=== PATIENT | female | born 1995 | race Caucasian/White ===

== ENCOUNTER 2018-04-20 05:23 | Inpatient (IN) | payer MEDICAID ==
[2018-04-20] MEDS ORDERED: Sodium Chloride 0.9% 10 ML Syringe FLUSH PRN ×2 (05:36→09:27)
[2018-04-20] MEDS ORDERED: ceFAZolin 2 GM in Premix Bag 1 BAG IV ONE (05:36)
[2018-04-20] MEDS ORDERED: Sodium Chloride 0.9% 2.5 ML Syringe FLUSH PRN ×2 (05:36→09:27)
[2018-04-20] MEDS ORDERED: Citric Acid/Sodium Citrate Solution 30 ML Cup PO SCH (05:45)
[2018-04-20] MEDS ORDERED: Oxytocin/0.9 % Sodium Chloride 30 UNIT/500 ML BAG IV SCH (05:45)
[2018-04-20] MEDS: Lactated Ringers 1,000 ML IV SCH ×2 (05:51→07:50)
[2018-04-20] MEDS ORDERED: Phenylephrine/Normal Saline 100 MCG/ML 10 ML Syringe ONE (07:08)
[2018-04-20] MEDS ORDERED: ceFAZolin/Dextrose,Iso-Osmotic 2 GM/50 ML Duplex Bag IV ONE (07:08)
[2018-04-20] MEDS ORDERED: Oxytocin 10 Units/1 ML SDV ONE (07:08)
[2018-04-20] MEDS ORDERED: Morphine PF 1 MG/ML Amp ONE (07:08)
[2018-04-20] MEDS ORDERED: ePHEDrine 50 MG/ML SDV ONE (08:50)
[2018-04-20] MEDS ORDERED: fentaNYL 100 MCG/2 ML SDV IVPUSH PRN (09:22)
[2018-04-20] MEDS ORDERED: Nalbuphine 10 MG/ML 10 ML MDV IVPUSH PRN (09:22)
[2018-04-20] MEDS ORDERED: Lanolin 100% Cream 7 GM Tube TOP PRN (09:27)
[2018-04-20] MEDS ORDERED: diphenhydrAMINE 50 MG/ML SDV IVPUSH PRN (09:27)
[2018-04-20] MEDS ORDERED: Acetaminophen/oxyCODONE 325-5 MG Tab PO PRN (09:27)
[2018-04-20] MEDS ORDERED: Bisacodyl 10 MG Supp RECTAL PRN (09:27)
[2018-04-20] MEDS ORDERED: Ondansetron 4 MG/2 ML SDV IV PRN (09:27)
[2018-04-20] MEDS ORDERED: Lactated Ringers 1,000 ML IV SCH (09:30)
--- NOTE | 2018-04-20 09:41 | PCM.OPNOTE ---
- General Post-Op/Procedure Note Date of Surgery/Procedure: 04/20/18 Operative Procedure(s): Primary section Findings: Female , Wt 2940 grams. Nuchal cord. Apgars 8 and 9. Normal appearing uterus, tubes and ovaries. Grossly normal placent with 3 vessel cord and a true knot Pre Op Diagnosis: Breech presentation Post-Op Diagnosis: Same Anesthesia Technique: Spinal Primary Surgeon: Tara Hollins Pathology: Placenta Fluid Replacement, Intraop: 1,300 Output, Urine Amount: 200 EBL in mLs: 700 Complications: None Condition: Good
[2018-04-20] MEDS: Ketorolac 30 MG/ML SDV IVPUSH SCH ×3 (09:48→21:15)
--- NOTE | 2018-04-20 10:03 | PCM.POSTAN ---
POST ANESTHESIA ASSESSMENT - MENTAL STATUS Mental Status: Alert, Oriented - VITAL SIGNS Pulse Rate: 88 SaO2: 98 Resp Rate: 16 Blood Pressure: 106/61 - RESPIRATORY Respiratory Status: Respiratory Rate WNL, Airway Patent, O2 Saturation Stable - CARDIOVASCULAR CV Status: Pulse Rate WNL, Blood Pressure Stable - GASTROINTESTINAL GI Status: No Symptoms - PAIN Pain Score: 0 - POST OP HYDRATION Hydration Status: Adequate & Stable
--- NOTE | 2018-04-20 13:00 | PCM.PREANE ---
Preanesthetic Assessment - Anesthesia/Transfusion/Family Hx Anesthesia History: Prior Anesthesia Without Reaction Family History of Anesthesia Reaction: No Transfusion History: No Prior Transfusion(s) - Review of Systems General: No Symptoms Pulmonary: No Symptoms Cardiovascular: No Symptoms Gastrointestinal: No Symptoms Neurological: No Symptoms - Physical Assessment NPO Status Date: 04/19/18 Pulse: 88 O2 Sat by Pulse Oximetry: 96 Respiratory Rate: 16 Blood Pressure: 106/61 Vital Signs: Last Vital Signs Temp 36.4 C 04/20/18 11:55 Pulse 93 04/20/18 11:55 Resp 16 04/20/18 11:55 BP 111/71 04/20/18 11:55 Pulse Ox 96 04/20/18 11:55 Height: 1.56 m Weight: 69.218 kg ASA Class: 2 Mental Status: Alert & Oriented x3 Dentition: Reports: Normal Dentition ROM/Head Extension: Full Lungs: Clear to Auscultation, Normal Respiratory Effort Cardiovascular: Regular Rate, Regular Rhythm - Lab Values: Laboratory Last Values WBC 10.68 K/uL (4.0-11.0) 04/20/18 05:50 RBC 3.92 M/uL (4.30-5.90) L 04/20/18 05:50 Hgb 11.8 g/dL (12.0-16.0) L 04/20/18 05:50 Hct 34.2 % (36.0-46.0) L 04/20/18 05:50 MCV 87.2 fL (80.0-98.0) 04/20/18 05:50 MCH 30.1 pg (27.0-32.0) 04/20/18 05:50 MCHC 34.5 g/dL (31.0-37.0) 04/20/18 05:50 RDW Std Deviation 42.6 fl (28.0-62.0) 04/20/18 05:50 RDW Coeff of Chad 14 % (11.0-15.0) 04/20/18 05:50 Plt Count 199 K/uL (150-400) 04/20/18 05:50 MPV 9.70 fL (7.40-12.00) 04/20/18 05:50 Nucleated RBC % 0.0 /100WBC 04/20/18 05:50 Nucleated RBCs # 0 K/uL 04/20/18 05:50 Cord ABG pH 7.278 (7.18-7.38) 04/20/18 08:31 Cord ABG Base Excess -5 (-10--2) 04/20/18 08:31 Cord VBG pH 7.351 (7.25-7.45) 04/20/18 08:31 Cord VBG Base Excess -5 (-10--2) 04/20/18 08:31 Blood Type O POSITIVE 04/20/18 05:50 Antibody Screen NEGATIVE 04/20/18 05:50 - Allergies Allergies/Adverse Reactions: Allergies Allergy/AdvReac Type Severity Reaction Status Date / Time No Known Allergies Allergy Verified 04/20/18 05:35 - Anesthesia Plan Pre-Op Medication Ordered: Antacids - Acknowledgements Anesthesia Type Planned: Spinal Pt an Appropriate Candidate for the Planned Anesthesia: Yes Alternatives and Risks of Anesthesia Discussed w Pt/Guardian: Yes Pt/Guardian Understands and Agrees with Anesthesia Plan: Yes PreAnesthesia Questionnaire - Past Health History Medical/Surgical History: Denies Medical/Surgical History HEENT History: Reports: Other (See Below) Other HEENT History: has permanent lower dental retainer Genitourinary History: Reports: STD Other Genitourinary History: HSV 1&2, chlamydia (responded to tx) HEDIS MANAGER History: Reports: - Past Surgical History Head Surgeries/Procedures: Reports: None HEENT Surgical History: Reports: Oral Surgery Other HEENT Surgeries/Procedures: wisdom teeth removal Female Surgical History: Reports: Breast Implant - SUBSTANCE USE Smoking Status *Q: Never Smoker Second Hand Smoke Exposure: No Recreational Drug Use History: No - HOME MEDS Home Medications: Home Meds Vit #76/Iron,Carb/Fa [Pnv 29-1 Tablet] 1 tab PO DAILY 03/20/18 [History ] Iron 27 mg PO DAILY 04/14/18 [History] - CURRENT (IN HOUSE) MEDS Current Meds: Current Medications Bisacodyl (Dulcolax) 10 mg RECTAL .ONCE PRN PRN Reason: Constipation Diphenhydramine HCl (Benadryl) 25 mg IVPUSH Q6H PRN PRN Reason: Itching or Nausea Last Admin: 04/20/18 10:49 Dose: 25 mg Docusate Sodium (Colace) 100 mg PO BID [facility] Emollient Ointment (Lansinoh Hpa) 0 gm TOP ASDIRECTED PRN PRN Reason: Sore Nipples Fentanyl (Sublimaze) 50 mcg IVPUSH Q5M PRN PRN Reason: Pain (severe 7-10) Stop: 04/21/18 09:22 Lactated Ringer's (Ringers, Lactated) 1,000 mls @ 125 mls/hr IV ASDIRECTED [facility] Last Admin: 04/20/18 12:17 Dose: 125 mls/hr Ibuprofen (Motrin) 800 mg PO Q8H PRN PRN Reason: mild pain or fever Ketorolac Tromethamine (Toradol) 30 mg IVPUSH Q6H [facility] Stop: 04/21/18 09:31 Last Admin: 04/20/18 09:48 Dose: 30 mg Nalbuphine HCl (Nubain) 2.5 mg IVPUSH Q3H PRN PRN Reason: Pruritis Stop: 04/21/18 09:22 Ondansetron HCl (Zofran) 4 mg IV Q4H PRN PRN Reason: Nausea/Vomiting Oxycodone/Acetaminophen (Percocet 325-5 Mg) 1 tab PO ONETIME PRN PRN Reason: Pain (moderate 4-6) Oxycodone/Acetaminophen (Percocet 325-5 Mg) 1 tab PO Q4H PRN PRN Reason: Pain (moderate 4-6) Oxycodone/Acetaminophen (Percocet 325-5 Mg) 2 tab PO Q4H PRN PRN Reason: Pain (moderate 4-6) Sodium Chloride (Saline Flush) 10 ml FLUSH ASDIRECTED PRN PRN Reason: Keep Vein Open Sodium Chloride (Saline Flush) 2.5 ml FLUSH ASDIRECTED PRN PRN Reason: Keep Vein Open Discontinued Medications Cefazolin Sodium/Dextrose (Ancef) Confirm Administered Dose 2 gm IV .STK-MED ONE Stop: 04/20/18 07:09 Citric Acid/Sodium Citrate (Bicitra Solution) 30 ml PO .ONCE [facility] Ephedrine Sulfate (Ephedrine Sulfate) Confirm Administered Dose 50 mg .ROUTE .STK-MED ONE Stop: 04/20/18 08:51 Cefazolin Sodium/Dextrose 2 gm (/ Premix) 50 mls @ 100 mls/hr IV ONETIME ONE Stop: 04/20/18 06:05 Lactated Ringer's (Ringers, Lactated) 1,000 mls @ 500 mls/hr IV .BOLUS [facility]ONIK[facility] Last Admin: 04/20/18 07:50 Dose: 500 mls/hr Oxytocin/Sodium Chloride (Oxytocin 30 Unit/500 Ml-Ns) 30 unit in 500 mls @ 250 mls/hr IV TITRATE [facility] Cefazolin Sodium/Dextrose (Ancef) Confirm Administered Dose 50 mls @ as directed .ROUTE .STK-MED ONE Stop: 04/20/18 08:10 Morphine Sulfate (Duramorph Pf) Confirm Administered Dose 1 mg .ROUTE .STK-MED ONE Stop: 04/20/18 07:09 Oxytocin (Pitocin) Confirm Administered Dose 20 unit .ROUTE .STK-MED ONE Stop: 04/20/18 07:09 Phenylephrine HCl (Phenylephrine In Ns 100 Mcg/Ml) Confirm Administered Dose 1 mg .ROUTE .STK-MED ONE Stop: 04/20/18 07:09 Sodium Chloride (Saline Flush) 10 ml FLUSH ASDIRECTED PRN PRN Reason: Keep Vein Open Sodium Chloride (Saline Flush) 2.5 ml FLUSH ASDIRECTED PRN PRN Reason: Keep Vein Open
[2018-04-20] MEDS: Acetaminophen/oxyCODONE 325-5 MG Tab PO PRN (19:37)
[2018-04-20] MEDS: Docusate Sodium 100 MG Cap PO SCH (21:16)
--- NOTE | 2018-04-21 01:31 | PCM.SN ---
- Free Text/Narrative Note: Pts IV was accidentally d/c'd early this AM. Nurse asked me if replacement was necessary. I informed the nursing that the patient needs to have an PIV in place as she is still on duramorph precautions.
[2018-04-21] MEDS: Ketorolac 30 MG/ML SDV IVPUSH SCH ×2 (03:25→10:22)
--- NOTE | 2018-04-21 06:20 | OR ---
SURGEON: Tara Hollins MD DATE OF PROCEDURE: 04/20/2018 PREOPERATIVE DIAGNOSES: 1. Term at 39 weeks and 2 days gestation. 2. Breech presentation. POSTOPERATIVE DIAGNOSES: 1. Term at 39 weeks and 2 days gestation. 2. Breech presentation. 3. Delivered. PROCEDURE: Primary low-transverse section via Pfannenstiel. ANESTHESIA: Spinal. ESTIMATED BLOOD LOSS: 600 mL. IV FLUIDS: 1300 mL of crystalloids. URINE OUTPUT: 200 mL, clear at the end of the procedure. COMPLICATIONS: None. INDICATION: A 22-year-old, G3, P2-0-0-2 at 39 weeks and 2 days gestation with jazmin breech presentation at term. Management/mode of delivery for breech presentation at term with risks and benefits were discussed with the patient. Given the fact that on ultrasound the fetus was found to have a nuchal cord and also a true knot, the patient opted to proceed with a primary section. Appropriate consent was obtained. FINDINGS: Female infant in jazmin breech presentation. score 8 and 9 at 1 and 5 minutes respectively. Weight 2940 g. Nuchal cord. Clear amniotic fluid. Normal-appearing uterus, tubes, and ovaries. Grossly normal placenta with 3- vessel cord and a true knot noted. PROCEDURE IN DETAIL: The patient was taken to the operating room where spinal anesthesia was performed and found to be adequate. She was then prepped and draped in the usual sterile fashion in the dorsal supine position with a leftward tilt. SCDs were in place. 2 g of Ancef was given. Appropriate time-out was held. A Pfannenstiel skin incision was made with a scalpel and carried through to the underlying layer of fascia. The fascia was incised in the midline and incision was extended laterally with the Bovie. The superior aspect of the fascial incision was grasped with the Sadia clamps, elevated, and the underlying rectus muscles were dissected off with the Bovie. Attention was then turned to the inferior aspect of this incision, which in a similar fashion was tented up with Sadia clamps and the rectus muscles dissected off with the Bovie. The rectus muscle was then in the midline and the parietal peritoneum was identified and entered bluntly.This peritoneal defect was then extended laterally by stretching. The bladder blade was placed. The vesicouterine peritoneum was identified, grasped with pickups, and entered sharply with Metzenbaum scissors. This incision was extended laterally and a bladder flap was created digitally. The bladder blade was then reinserted and the lower uterine segment was incised in a transverse fashion with the scalpel. The incision was extended upwards and downwards bluntly. The bladder blade was removed and the 's buttocks was lifted out of the pelvis atraumatically and then the feet were delivered followed by the rest of the baby using routine breech extraction maneuvers. The baby was vigorous and cried spontaneously at . The oropharynx and nostrils were bulb suctioned on the abdomen. The cord was double clamped and cut and the infant was handed over to the waiting nursery team. Cord blood and gas samples were obtained. The placenta was then delivered spontaneously by massage. The uterus was cleaned of all clots and debris. The hysterotomy site was repaired in 2 layers using 0 Vicryl suture. The first layer was repaired in a running locked fashion and a second imbricating layer was performed to obtain excellent hemostasis. One hemostatic suture was placed in the midline with 2-0 Monocryl suture to control the bleeding. It was completely hemostatic afterwards. Copious irrigation was performed and the gutters were cleaned of all clots and debris. The hysterotomy site was examined and found to have excellent hemostasis. The edges of the parietal peritoneum were then identified and this layer was closed with 2-0 Vicryl suture in a running fashion. The rectus muscles were approximated with the same suture using mattress stitches. The subfascial tissue was examined, found to be hemostatic. The fascia was approximated with 0 Vicryl in a running fashion. The subcutaneous tissue was then irrigated and made hemostatic with electrocautery. The skin was closed with subcuticular stitches using 4-0 Monocryl suture. The patient tolerated the procedure well. Sponge, lap, and needle counts were correct at the end of the procedure. The patient was taken to the recovery room in stable condition and the baby stable to nursery. DIAZ / DANNA /[id number] JEAN
--- NOTE | 2018-04-21 10:16 | PCM.PNPP ---
- General Info Date of Service: 04/21/18 Functional Status: Reports: Pain Controlled, Tolerating Diet, Ambulating, Other (yet to vopid, jayme removed this am) - Review of Systems General: Denies: Fever, Malaise, Chills HEENT: Denies: Headaches Pulmonary: Denies: Shortness of Breath, Pleuritic Chest Pain Cardiovascular: Denies: Chest Pain, Palpitations Gastrointestinal: Denies: Abdominal Pain Genitourinary: Denies: Flank Pain - General Info Date of Service: 04/21/18 - Patient Data Vital Signs - Most Recent: Last Vital Signs Temp 36.6 C 04/21/18 07:30 Pulse 94 04/21/18 03:29 Resp 17 04/21/18 08:30 BP 95/56 L 04/21/18 07:30 Pulse Ox 96 04/21/18 08:30 Weight - Most Recent: 152 lb 9.6 oz I&O - Last 24 Hours: Intake & Output 04/20/18 04/21/18 04/21/18 22:59 06:59 14:59 Intake Total 1135 Output Total 900 250 Balance 235 -250 Lab Results - Last 24 Hours: Laboratory Results - last 24 hr 04/21/18 Range/Units 06:04 Hgb 9.5 L (12.0-16.0) g/dL Hct 27.8 L (36.0-46.0) % Med Orders - Current: Current Medications Bisacodyl (Dulcolax) 10 mg RECTAL .ONCE PRN PRN Reason: Constipation Diphenhydramine HCl (Benadryl) 25 mg IVPUSH Q6H PRN PRN Reason: Itching or Nausea Last Admin: 04/20/18 10:49 Dose: 25 mg Docusate Sodium (Colace) 100 mg PO BID [facility] Last Admin: 04/20/18 21:16 Dose: 100 mg Emollient Ointment (Lansinoh Hpa) 0 gm TOP ASDIRECTED PRN PRN Reason: Sore Nipples Lactated Ringer's (Ringers, Lactated) 1,000 mls @ 125 mls/hr IV ASDIRECTED [facility] Last Admin: 04/20/18 12:17 Dose: 125 mls/hr Ibuprofen (Motrin) 800 mg PO Q8H PRN PRN Reason: mild pain or fever Ondansetron HCl (Zofran) 4 mg IV Q4H PRN PRN Reason: Nausea/Vomiting Oxycodone/Acetaminophen (Percocet 325-5 Mg) 1 tab PO ONETIME PRN PRN Reason: Pain (moderate 4-6) Oxycodone/Acetaminophen (Percocet 325-5 Mg) 1 tab PO Q4H PRN PRN Reason: Pain (moderate 4-6) Last Admin: 04/20/18 19:37 Dose: 1 tab Oxycodone/Acetaminophen (Percocet 325-5 Mg) 2 tab PO Q4H PRN PRN Reason: Pain (moderate 4-6) Sodium Chloride (Saline Flush) 10 ml FLUSH ASDIRECTED PRN PRN Reason: Keep Vein Open Sodium Chloride (Saline Flush) 2.5 ml FLUSH ASDIRECTED PRN PRN Reason: Keep Vein Open Discontinued Medications Cefazolin Sodium/Dextrose (Ancef) Confirm Administered Dose 2 gm IV .STK-MED ONE Stop: 04/20/18 07:09 Citric Acid/Sodium Citrate (Bicitra Solution) 30 ml PO .ONCE [facility] Ephedrine Sulfate (Ephedrine Sulfate) Confirm Administered Dose 50 mg .ROUTE .STK-MED ONE Stop: 04/20/18 08:51 Fentanyl (Sublimaze) 50 mcg IVPUSH Q5M PRN PRN Reason: Pain (severe 7-10) Stop: 04/21/18 09:22 Cefazolin Sodium/Dextrose 2 gm (/ Premix) 50 mls @ 100 mls/hr IV ONETIME ONE Stop: 04/20/18 06:05 Lactated Ringer's (Ringers, Lactated) 1,000 mls @ 500 mls/hr IV .BOLUS [facility] Last Admin: 04/20/18 07:50 Dose: 500 mls/hr Oxytocin/Sodium Chloride (Oxytocin 30 Unit/500 Ml-Ns) 30 unit in 500 mls @ 250 mls/hr IV TITRATE [facility] Cefazolin Sodium/Dextrose (Ancef) Confirm Administered Dose 50 mls @ as directed .ROUTE .STK-MED ONE Stop: 04/20/18 08:10 Ketorolac Tromethamine (Toradol) 30 mg IVPUSH Q6H [facility] Stop: 04/21/18 09:31 Last Admin: 04/21/18 03:25 Dose: 30 mg Morphine Sulfate (Duramorph Pf) Confirm Administered Dose 1 mg .ROUTE .STK-MED ONE Stop: 04/20/18 07:09 Nalbuphine HCl (Nubain) 2.5 mg IVPUSH Q3H PRN PRN Reason: Pruritis Stop: 04/21/18 09:22 Oxytocin (Pitocin) Confirm Administered Dose 20 unit .ROUTE .STK-MED ONE Stop: 04/20/18 07:09 Phenylephrine HCl (Phenylephrine In Ns 100 Mcg/Ml) Confirm Administered Dose 1 mg .ROUTE .STK-MED ONE Stop: 04/20/18 07:09 Sodium Chloride (Saline Flush) 10 ml FLUSH ASDIRECTED PRN PRN Reason: Keep Vein Open Sodium Chloride (Saline Flush) 2.5 ml FLUSH ASDIRECTED PRN PRN Reason: Keep Vein Open - Infant Interaction Infant Disposition, : [place] to Nursery Infant Feeding: Breastfed Infant; Nursed Well Support Person: Significant Other - Recovery Exam Fundal Tone: Firm Fundal Level: At Umbilicus Fundal Placement: Midline Lochia Amount: Scant Lochia Color: Rubra/Red Perineum Description: Intact, Minimal Bruising/Swelling Episiotomy/Laceration: Approximated - Exam General: Alert, Oriented HEENT: Pupils Equal, Pupils Reactive Lungs: Clear to Auscultation, Normal Respiratory Effort Cardiovascular: Regular Rate, Regular Rhythm GI/Abdominal Exam: Normal Bowel Sounds, Soft, Non-Tender Extremities: Non-Tender, No Pedal Edema Skin: Warm Wound/Incisions: Dressing Dry and Intact Psy/Mental Status: Alert, Normal Affect, Normal Mood - Problem List & Annotations (1) Delivery by section for breech presentation SNOMED Code(s): 454681754 Code(s): O32.1XX0 - MATERNAL CARE FOR BREECH PRESENTATION, UNSP Status: Acute Current Visit: Yes - Problem List Review Problem List Initiated/Reviewed/Updated: Yes - My Orders Last 24 Hours: My Active Orders 04/20/18 09:27 Patient Status [ADT] Routine Ambulate [RC] PER UNIT ROUTINE Bedrest Bathroom Privileges [RC] ASDIRECTED Communication Order [RC] PER UNIT ROUTINE May Shower [RC] ASDIRECTED RT Incentive Spirometry [RC] Q2HWA Urinary Catheter Removal [RC] Per Unit Routine Vital Signs [RC] PER UNIT ROUTINE Acetaminophen/oxyCODONE [Percocet 325-5 MG] 1 tab PO Q4H PRN Acetaminophen/oxyCODONE [Percocet 325-5 MG] 2 tab PO Q4H PRN Bisacodyl [Dulcolax] 10 mg RECTAL .ONCE PRN Ibuprofen [Motrin] 800 mg PO Q8H PRN Lanolin [Lansinoh HPA] See Dose Instructions TOP ASDIRECTED PRN Ondansetron [Zofran] 4 mg IV Q4H PRN Sodium Chloride 0.9% [Saline Flush] 10 ml FLUSH ASDIRECTED PRN Sodium Chloride 0.9% [Saline Flush] 2.5 ml FLUSH ASDIRECTED PRN diphenhydrAMINE [Benadryl] 25 mg IVPUSH Q6H PRN Abdominal Binder [OM.PC] Routine Assess Lochia [WOMSER] Per Unit Routine Assess Uterine Involution [WOMSER] Per Unit Routine Breast Pump [WOMSER] Per Unit Routine Peripheral IV Discontinue [OM.PC] Routine Peripheral IV Insertion Adult [OM.PC] Routine Sequential Compression Device [OM.PC] Per Unit Routine Resuscitation Status Routine 04/20/18 09:28 Intake and Output [RC] Q4H 04/20/18 09:29 Notify Provider Intake and Out [RC] ASDIRECTED Notify Provider Vital Signs [RC] ASDIRECTED 04/20/18 09:30 Lactated Ringers [Ringers, Lactated] 1,000 ml IV ASDIRECTED 04/20/18 21:00 Docusate Sodium [Colace] 100 mg PO BID 04/20/18 Lunch Regular Diet [DIET] - Assessment Assessment:: POD#1 s/p , doing well. Stable and afebrile - Plan Plan:: Encouraged to ambulate ad noe Continue current care. Aim discharge tomorrow
[2018-04-21] MEDS: Docusate Sodium 100 MG Cap PO SCH ×2 (10:22→21:18)
[2018-04-21] MEDS: Acetaminophen/oxyCODONE 325-5 MG Tab PO PRN ×2 (15:29→21:18)
[2018-04-21] MEDS: Ibuprofen 800 MG Tab PO PRN (19:18)
[2018-04-22] MEDS: Acetaminophen/oxyCODONE 325-5 MG Tab PO PRN ×2 (00:57→06:29)
[2018-04-22] MEDS: Ibuprofen 800 MG Tab PO PRN (06:28)
--- NOTE | 2018-04-22 07:39 | PCM.PNPP ---
- General Info Date of Service: 04/22/18 Functional Status: Reports: Pain Controlled, Tolerating Diet, Ambulating, Urinating - Review of Systems General: Denies: Fever HEENT: Denies: Headaches, Visual Changes Pulmonary: Denies: Shortness of Breath, Pleuritic Chest Pain Cardiovascular: Denies: Chest Pain, Palpitations, Dyspnea on Exertion Gastrointestinal: Denies: Abdominal Pain Genitourinary: Denies: Dysuria, Incontinence, Flank Pain - General Info Date of Service: 04/22/18 - Patient Data Vital Signs - Most Recent: Last Vital Signs Temp 36.7 C 04/22/18 03:15 Pulse 72 04/22/18 03:15 Resp 16 04/22/18 03:15 BP 133/75 04/22/18 03:15 Pulse Ox 98 04/22/18 03:15 Weight - Most Recent: 152 lb 9.6 oz Med Orders - Current: Current Medications Bisacodyl (Dulcolax) 10 mg RECTAL .ONCE PRN PRN Reason: Constipation Diphenhydramine HCl (Benadryl) 25 mg IVPUSH Q6H PRN PRN Reason: Itching or Nausea Last Admin: 04/20/18 10:49 Dose: 25 mg Docusate Sodium (Colace) 100 mg PO BID [facility] Last Admin: 04/21/18 21:18 Dose: 100 mg Emollient Ointment (Lansinoh Hpa) 0 gm TOP ASDIRECTED PRN PRN Reason: Sore Nipples Lactated Ringer's (Ringers, Lactated) 1,000 mls @ 125 mls/hr IV ASDIRECTED [facility] Last Admin: 04/20/18 12:17 Dose: 125 mls/hr Ibuprofen (Motrin) 800 mg PO Q8H PRN PRN Reason: mild pain or fever Last Admin: 04/22/18 06:28 Dose: 800 mg Ondansetron HCl (Zofran) 4 mg IV Q4H PRN PRN Reason: Nausea/Vomiting Oxycodone/Acetaminophen (Percocet 325-5 Mg) 1 tab PO ONETIME PRN PRN Reason: Pain (moderate 4-6) Last Admin: 04/22/18 06:29 Dose: 1 tab Oxycodone/Acetaminophen (Percocet 325-5 Mg) 1 tab PO Q4H PRN PRN Reason: Pain (moderate 4-6) Last Admin: 04/21/18 21:18 Dose: 1 tab Oxycodone/Acetaminophen (Percocet 325-5 Mg) 2 tab PO Q4H PRN PRN Reason: Pain (moderate 4-6) Sodium Chloride (Saline Flush) 10 ml FLUSH ASDIRECTED PRN PRN Reason: Keep Vein Open Sodium Chloride (Saline Flush) 2.5 ml FLUSH ASDIRECTED PRN PRN Reason: Keep Vein Open Discontinued Medications Cefazolin Sodium/Dextrose (Ancef) Confirm Administered Dose 2 gm IV .STK-MED ONE Stop: 04/20/18 07:09 Citric Acid/Sodium Citrate (Bicitra Solution) 30 ml PO .ONCE [facility] Ephedrine Sulfate (Ephedrine Sulfate) Confirm Administered Dose 50 mg .ROUTE .STK-MED ONE Stop: 04/20/18 08:51 Fentanyl (Sublimaze) 50 mcg IVPUSH Q5M PRN PRN Reason: Pain (severe 7-10) Stop: 04/21/18 09:22 Cefazolin Sodium/Dextrose 2 gm (/ Premix) 50 mls @ 100 mls/hr IV ONETIME ONE Stop: 04/20/18 06:05 Lactated Ringer's (Ringers, Lactated) 1,000 mls @ 500 mls/hr IV .BOLUS VERONIKA Last Admin: 04/20/18 07:50 Dose: 500 mls/hr Oxytocin/Sodium Chloride (Oxytocin 30 Unit/500 Ml-Ns) 30 unit in 500 mls @ 250 mls/hr IV TITRATE [facility]ONIKA Cefazolin Sodium/Dextrose (Ancef) Confirm Administered Dose 50 mls @ as directed .ROUTE .STK-MED ONE Stop: 04/20/18 08:10 Ketorolac Tromethamine (Toradol) 30 mg IVPUSH Q6H [facility] Stop: 04/21/18 09:31 Last Admin: 04/21/18 10:22 Dose: 30 mg Morphine Sulfate (Duramorph Pf) Confirm Administered Dose 1 mg .ROUTE .STK-MED ONE Stop: 04/20/18 07:09 Nalbuphine HCl (Nubain) 2.5 mg IVPUSH Q3H PRN PRN Reason: Pruritis Stop: 04/21/18 09:22 Oxytocin (Pitocin) Confirm Administered Dose 20 unit .ROUTE .STK-MED ONE Stop: 04/20/18 07:09 Phenylephrine HCl (Phenylephrine In Ns 100 Mcg/Ml) Confirm Administered Dose 1 mg .ROUTE .STK-MED ONE Stop: 04/20/18 07:09 Sodium Chloride (Saline Flush) 10 ml FLUSH ASDIRECTED PRN PRN Reason: Keep Vein Open Sodium Chloride (Saline Flush) 2.5 ml FLUSH ASDIRECTED PRN PRN Reason: Keep Vein Open - Infant Interaction Infant Disposition, : to Nursery Feeding: Breastfed Infant; Nursed Well Support Person: Significant Other - Recovery Exam Fundal Tone: Firm Fundal Level: At Umbilicus Fundal Placement: Midline Lochia Amount: Scant Lochia Color: Rubra/Red Perineum Description: Intact, Minimal Bruising/Swelling Episiotomy/Laceration: None Bladder Status: Nonpalpable Urinary Elimination: Voided - Exam General: Alert, Oriented Neck: Supple Lungs: Clear to Auscultation, Normal Respiratory Effort Cardiovascular: Regular Rate, Regular Rhythm GI/Abdominal Exam: Normal Bowel Sounds Skin: Warm Wound/Incisions: Healing Well Psy/Mental Status: Alert, Normal Affect, Normal Mood - Problem List & Annotations (1) Delivery by section for breech presentation SNOMED Code(s): 725132453 Code(s): O32.1XX0 - MATERNAL CARE FOR BREECH PRESENTATION, UNSP Status: Acute Current Visit: Yes - Problem List Review Problem List Initiated/Reviewed/Updated: Yes - Assessment Assessment:: POD#2 s/p . Stable and afebrile Clinically stable for discharge today - Plan Plan:: Discharge instructions reviewed. Nothing in the vagina for 6 week Incision care reviewed Bleeding and infection precautions given blues vs depression S/S reviewed and patient advised to consult physician with any concerns Continue PNV and Iron supplements Prescription for pain meds sent to her pharmacy Follow up in the clinic in 2 and 6 weeks
[2018-04-22 07:59] VITALS: BP 118/75
[2018-04-22] MEDS: Docusate Sodium 100 MG Cap PO SCH (10:38)
== END 2018-04-22 11:05 | disposition home or self-care (01) | DRG 766 ==
LOC: MW.OB 05:23
PROVIDERS: ADMIT Obstetrics & Gynecology; ATTEND Obstetrics & Gynecology
PROC: 10D00Z1 Extraction of Products of Conception, Low, Open Approach (ICD-10-PCS; principal; 2018-04-20)
DX: O32.1XX0 Maternal care for breech presentation, not applicable or unspecified (principal); O69.2XX0 Labor and delivery complicated by other cord entanglement, with compression, not applicable or unspecified; Z3A.39 39 weeks gestation of pregnancy; Z37.0 Single live birth
CPT/HCPCS: 36415; 59025; 82803; 85014; 85018; 85027; 86850; 86900; 86901; 88307; A9270-GY; J0690; J1200; J1885; J2274; J2370; J2590; J7120